=== PATIENT | male | born 1990 | race Caucasian/White ===

== ENCOUNTER 2019-06-30 04:57 | Emergency (ER) | payer OTHER ==
[~2019-06-30] VITALS: Ht 188 cm; Wt 104.5 kg
[2019-06-30 05:03] VITALS: BP 168/86
[2019-06-30] MEDS: LIDOCAINE 2% 20 ML VIAL. IJ ONE (05:19)
[2019-06-30] MEDS ORDERED: CEPH500C PO (05:49)
--- NOTE | 2019-06-30 05:50 | PHYS DOC ---
Adult General Chief Complaint Chief Complaint: LACERATION/AVULSION HPI HPI Patient is a 29 year old male who sustained an injury while at work at [employer]. Patient states that he was working with a machine with a sharp edge and the edge and down on his finger, lacerating the tip of his finger. One of the employees at [employer] was a medic and dressed the wound prior to departure. Patient indicates that he is not up-to-date on his tetanus. His any other injuries.[] Review of Systems Review of Systems Constitutional: Denies fever or chills [] Respiratory: Denies cough or shortness of breath [] Cardiovascular: No additional information not addressed in HPI [] Integument: Positive laceration right ring finger[] Neurologic: Denies headache, focal weakness or sensory changes [] Current Medications Current Medications Current Medications Medications (Trade) Dose Ordered Sig/Tony Start Time Stop Time Status Last Admin Dose Admin Diphtheria/ Tetanus/Acell Pertussis (ADACEL TDap SYRINGE) 0.5 ml ONCE ONCE 06/30/19 06:00 06/30/19 06:01 Lidocaine HCl 20 ml 1X ONCE 06/30/19 06:00 06/30/19 06:01 06/30/19 05:19 20 ML Neomycin/ Polymyxin/ Bacitracin (Triple Antibiotic Ointment) 1 pkt 1X ONCE 06/30/19 06:00 06/30/19 06:01 Allergies Allergies Allergies Coded Allergies Type Severity Reaction Last Updated Verified No Known Drug Allergies 06/30/19 No Physical Exam Physical Exam Constitutional: Well developed, well nourished, no acute distress, non-toxic appearance. [] Cardiovascular:Heart rate regular rhythm, no murmur [] Lungs & Thorax: Bilateral breath sounds clear to auscultation [] Skin: There is a 2 cm curvilinear laceration to the tip of the right ring finger with fairly sharp wound margins extending into subcutaneous tissue. No foreign body identified. [] Current Patient Data Vital Signs Vital Signs Date Time Temp Pulse Resp B/P (MAP) Pulse Ox O2 Delivery O2 Flow Rate FiO2 06/30/19 05:03 98.2 99 20 168/86 (113) 99 Room Air 98.2 EKG EKG [] Radiology/Procedures Radiology/Procedures [] Course & Med Decision Making Course & Med Decision Making Pertinent Labs and Imaging studies reviewed. (See chart for details) Laceration Repair by me: Anesthesia: 2% lidocaine locally Location: Right ring finger Tendon/Joint/Nerves: No injury Foreign body: None detected after copious irrigation and exploration Technique: A total of 9 Simple Interrupted Sutures were placed utilizing 5-0 Ethilon suture material Complexity: No subcutaneous sutures/mucosal repair/edge excision Post Closure Length: 2 cm Patient's bleeding was easily controlled in the department and there is no indication of anemia. No evidence of compartment syndrome, neurologic injury, vascular injury, open joint, tendon laceration, or foreign body. Patient is appropriate for outpatient follow up. 48 hour wound check. Scar minimization instructions given. Dragon Disclaimer Dragon Disclaimer This electronic medical record was generated, in whole or in part, using a voice recognition dictation system. Departure Departure Impression: Primary Impression: Finger laceration Disposition: 01 HOME, SELF-CARE Condition: STABLE Patient Instructions: Fingertip Laceration, Form - Excuse from Work, School, or Physical Activity, Laceration Care, Adult Additional Instructions: Return for suture removal in 10-14 days. Scripts Cephalexin (CEPHALEXIN) 500 Mg Capsule 1 CAP PO BID, #20 CAP Prov: ELISSA ALLAN Jr. DO 06/30/19 Problem Qualifiers Primary Impression: Finger laceration Encounter type: initial encounter Finger: little finger Damage to nail status: without damage Foreign body presence: without foreign body Laterality: right Qualified Codes: S61.216A - Laceration without foreign body of right little finger without damage to nail, initial encounter ELISSA ALLAN Jr. DO Jun 30, 2019 05:50
[2019-06-30] MEDS: NEOMY/BACITR/POLYMYXIN OINT PACKET. TP ONE (06:13)
[2019-06-30] MEDS: DIPH,PERTUSS(ACELL),TET VAC/PF 0.5 ML SYRINGE. VAX IM ONE (06:14)
== END 2019-06-30 06:30 | disposition home or self-care (01) ==
LOC: ER 04:57
DX: S61.214A Laceration without foreign body of right ring finger without damage to nail, initial encounter (principal); W26.8XXA Contact with other sharp object(s), not elsewhere classified, initial encounter; Y93.89 Activity, other specified; Y92.89 Other specified places as the place of occurrence of the external cause; Y99.0 Civilian activity done for income or pay
CPT/HCPCS: 12001; 90471; 90715; 99283